=== PATIENT | male | born 1975 | race Two or more races ===

== ENCOUNTER 2020-11-13 09:10 | Day surgery (SDC) | payer OTHER ==
[2020-11-13] MEDS ORDERED: DICY20TA PO (12:06)
[2020-11-13] MEDS ORDERED: MOXIFLOXACIN H400 MG PO (12:06)
== END 2020-11-13 13:35 | disposition home or self-care (01) ==
LOC: AMB-ENDOS 09:10
PROVIDERS: ATTEND Surgery
DX: D12.8 Benign neoplasm of rectum (principal); K64.8 Other hemorrhoids; Z20.822 Contact with and (suspected) exposure to COVID-19

== ENCOUNTER 2023-08-25 10:14 | Emergency (ER) | payer OTHER ==
[~2023-08-25] VITALS: Ht 177.8 cm; Wt 80.7 kg
[~2023-08-25 10:14] MED LIST: DICY20TA PO; MOXIFLOXACIN H400 MG PO
[2023-08-25] MEDS ORDERED: COZAAR25 MG (10:16)
[2023-08-25] MEDS ORDERED: FAMOTIDINE/PF 20 MG in 0.9 % SODIUM CHLORIDE 8 ML IV PUSH STA (10:26)
[2023-08-25] MEDS ORDERED: KETOROLAC TROMETHAMINE 30 MG VIAL IV ONE (10:30)
[2023-08-25] MEDS ORDERED: 0.9 % SODIUM CHLORIDE 1,000 ML IV SCH (10:30)
[2023-08-25] MEDS ORDERED: PIPERACILLIN/TAZOBACTAM SODIUM 3.375 GM VIAL IV ONE (10:30)
[2023-08-25 11:27] LABS: HEMATOCRIT 43.4 % (39.0-48.0); HEMOGLOBIN 15.3 g/dL (13-16.00); MEAN CELL VOLUME 86.8 fL (80.0-100.00); MEAN CORPUSCULAR HEMOGLOBIN 30.6 pg (27.00-32.0); MEAN CORPUSCULAR HGB CONC 35.2 g/dl (32.0-36.0); PLATELET COUNT 208 K/uL (150-450)
[2023-08-25 12:06] LABS: ALBUMIN 3.8 gm/dL (3.4-5.0); BILIRUBIN TOTAL 1.32 mg/dL (0.3-1.2); CALCIUM 9.2 mg/dL (8.5-10.1); CREATININE SERUM 0.83 mg/dL (0.70-1.30); GFR 98.88; GLOBULINA 4.1 G/DL (2.4-3.5); POTASSIUM 3.48 mEq/L (3.5-5.1); TOTAL PROTEIN 7.9 gm/dL (6.4-8.2)
[2023-08-25] MEDS ORDERED: PROTONIX40 MG PO (12:51)
[2023-08-25] MEDS ORDERED: LEVSIN/SL0.125 MG SL (12:51)
[2023-08-25] MEDS ORDERED: INTESTINEX680 M1 PO (12:51)
== END 2023-08-25 13:26 | disposition home or self-care (01) ==
LOC: ER 10:15
PROVIDERS: General Practice
DX: R10.32 Left lower quadrant pain (principal); K57.32 Diverticulitis of large intestine without perforation or abscess without bleeding